=== PATIENT | male | born 1975 | race African-American/Black ===

== ENCOUNTER 2017-07-23 13:10 | Emergency (ER) | payer SELFPAY ==
[2017-07-23 13:14] VITALS: BP 142/89; PULSE 85; TEMP 98; BMI 29.8
--- NOTE | 2017-07-23 14:13 | PDOC ---
History of Present Illness - General Chief Complaint: Injury Stated Complaint: LACERATED LIP Time Seen by Provider: 07/23/17 13:54 History Source: Patient Exam Limitations: No Limitations - History of Present Illness Initial Comments: 07/23/17 14:08 Lower lip laceration; states was carrying 2 bags of garbage down some slippery metal stairs tripped and fell forward falling into a brick wall. He shouldn't incurred avulsion laceration to his lower lip with loss of tissue Occurred: reports: this afternoon Severity: reports: mild, moderate Pain Location: reports: face, mouth Method of Injury: Yes: fall Loss of Consciousness: no loss of consciousness Associated Symptoms (Fall): denies symptoms Past History - Travel Traveled outside of the country in the last 30 days: No Close contact w/someone who was outside of country & ill: No - Past Medical History Allergies/Adverse Reactions: Allergies Allergy/AdvReac Type Severity Reaction Status Date / Time No Known Allergies Allergy Verified 07/23/17 13:14 Home Medications: Ambulatory Orders NK [No Known Home Medication] 07/23/17 Other medical history: denies - Suicide/Smoking/Psychosocial Hx Smoking History: Never smoked Information on smoking cessation initiated: Yes 'Breaking Loose' booklet given: 07/23/17 Hx Alcohol Use: No Drug/Substance Use Hx: Yes (marijuana) Substance Use Type: None Trauma Specific PMHX - Complaint Specific PMHX Back Injury: No Neck Injury: No Review of Systems - Review of Systems Able to Perform ROS?: Yes Is the patient limited Marshallese proficient: Yes Constitutional: Yes: Symptoms Reported. No: Unintentional Wgt. Loss HEENTM: Yes: Symptoms Reported, See HPI, Mouth Pain Respiratory: No: Symptoms reported Neurological: Yes: Symptoms reported, See HPI. No: Headache All Other Systems: Reviewed and Negative *Physical Exam - Vital Signs Last Vital Signs Temp Pulse Resp BP Pulse Ox 98 F 85 19 142/89 99 07/23/17 13:12 07/23/17 13:12 07/23/17 13:12 07/23/17 13:12 07/23/17 13:12 - Physical Exam General Appearance: Yes: Nourished, Appropriately Dressed, Apparent Distress, Mild Distress, Moderate Distress HEENT: positive: NICHOL, TMs Normal (no hemotympanum, no drainage from nose or ears, no evidence of skull fracture), Other (patient with a 1 cm x 2 cm length avulsion laceration to the lower lip, has no active bleeding, does not extend past for million border. Has full range of motion to lower lip. Dentition is intact without any loosening or injury. Jaws intact without any pain or crepitus at TMJ. Neck is supple without tenderness along cervical spine or musculature.). negative: Normal ENT Inspection, Rhinorrhea Neck: positive: Supple. negative: Tender Respiratory/Chest: positive: Lungs Clear, Normal Breath Sounds Extremity: positive: Normal Capillary Refill Integumentary: positive: Normal Color, Dry, Warm Neurologic: positive: entry level finance II-XII NML intact, Fully Oriented, Alert, Normal Mood/ Affect, Normal Response, Motor Strength 5/5 Progress Note - Progress Note Progress Note: Discussed case with Dr. Blake who indicated patient would probably need a composite graft. Patient understood this evaluation and stated he did not wish to stay at this hospital for treatment for further care. Stated most of his doctors were at [facility] and that he would rather be evaluated and treated there. Patient did not choose to stay for discharge and left emergency department before completion of evaluation. *DC/Admit/Observation/Transfer Diagnosis at time of Disposition: Avulsion of skin of face Qualifiers: Encounter type: initial encounter Qualified Code(s): S01.80XA - Unspecified open wound of other part of head, initial encounter; S01.80XA - Unspecified open wound of other part of head, initial encounter - Discharge Dispostion Disposition: AGAINST MEDICAL ADVICE Condition at time of disposition: Stable Admit: No
== END 2017-07-23 14:30 | disposition left against medical advice (07) ==
LOC: JERFT 13:10
DX: S01.511A Laceration without foreign body of lip, initial encounter (principal); W10.9XXA Fall (on) (from) unspecified stairs and steps, initial encounter; Y93.89 Activity, other specified; Y92.9 Unspecified place or not applicable
CPT/HCPCS: 99281-25

== ENCOUNTER 2020-11-30 05:28 | Emergency (ER) | payer SELFPAY ==
[2020-11-30 06:14] VITALS: BMI 28.4
[2020-11-30 06:23] LABS: BASO % 1.6 % (0-2.0); HEMATOCRIT 36.9 % (35.4-49); HEMOGLOBIN 12.5 GM/dL (11.7-16.9); LYMPH % 26.3 % (8-40); MCH 33.4 pg (25.7-33.7); MEAN CELL VOLUME 98.1 fl (80-96); MEAN PLT VOLUME 8.5 fl (7.5-11.1); MONO % 5.8 % (3.8-10.2); NEUT % 58.3 % (42.8-82.8); PLATELET COUNT 222 K/MM3 (134-434); RBC 3.76 M/mm3 (4.00-5.60); WHITE BLOOD COUNT 3.9 K/mm3 (4.0-10.0)
[2020-11-30 06:46] LABS: CHLORIDE 105 mmol/L (98-107); POTASSIUM 4.5 mmol/L (3.5-5.1); SODIUM 136 mmol/L (136-145)
[2020-11-30 06:48] LABS: CALCIUM 8.4 mg/dL (8.5-10.1)
[2020-11-30 06:49] LABS: ALBUMIN 3.7 g/dl (3.4-5.0); ANION GAP 5 MMOL/L (8-16); CO2 26 mmol/L (21-32); GLUCOSE,RANDOM 102 mg/dL (74-106)
[2020-11-30 06:52] LABS: SGOT/AST 59 U/L (15-37); SGPT/ALT 53 U/L (13-61)
[2020-11-30 06:54] LABS: BILIRUBIN,TOTAL 0.3 mg/dL (0.2-1); TOT PROT 7.3 g/dl (6.4-8.2)
[2020-11-30 06:55] VITALS: TEMP 98.7
[2020-11-30 06:55] LABS: ALK PHOS 83 U/L (45-117)
[2020-11-30] MEDS ORDERED: OXcarbazepine 300 MG TABLET (UD) PO ONE (09:37)
[2020-11-30 10:13] VITALS: BP 130/70; PULSE 66
== END 2020-11-30 10:34 | disposition home or self-care (01) ==
LOC: JER 05:28
DX: G40.89 Other seizures (principal)
CPT/HCPCS: 36415; 80053; 80307; 85025; 99283-25